=== PATIENT | female | born 1935 | race Caucasian/White ===

== ENCOUNTER 2016-09-20 13:35 | Day surgery (SDC) | payer MEDICARE ==
--- OUTSIDE RECORDS SUMMARY | 2016-09-20 13:41 | XMS REPORT | Continuity of Care Document ---
:1935 Author Organization [facility] ([facility]) Address [address] [place] [address] Phone [phone] Care Team Providers Name Role Phone Britany Ch Primary Care Provider [phone] Source Comments This disclosure is being made pursuant to the Care Everywhere program, applicable federal and state laws, and may not contain all informaitonavailable regarding this patient.[facility] ([facility]) Active Allergies and Adverse Reactions No Known Allergies Current Medications Prescription Sig. Disp. Refills Start Date End Date Status simvastatin 40 mg Take 40 mg by Active tablet mouth every evening. dorzolamide-timolol instill 1 Drop 10 mL 2 07/12/2014 Active 2-0.5 % ophthalmic onto both eyes 2 solution times daily. Indications: OCULAR HYPERTENSION atenolol 100 mg Take 100 mg by Active tablet mouth 2 times daily. docusate 100 mg Take 100 mg by Active capsule mouth daily as needed. furosemide 40 mg Take 40 mg by Active tablet mouth daily. minoxidil 2.5 mg Take 2.5 mg by Active tablet mouth 2 times daily. omeprazole 20 mg Take 20 mg by Active enteric coated mouth 2 times capsule daily. oxybutynin 5 mg Take 5 mg by mouth Active tablet 2 times daily. multivitamin with Take 1 Tab by Active minerals tablet mouth daily. vitamin A-vitamin Take 1 Tab by Active C-vitamin E w/ mouth daily. minerals (OCUVITE) tablet glucosamine-chondro Take 1 Tab by Active itin (OSTEO mouth daily. BI-FLEX) 250-200 mg per tablet HYDROcodone-acetami Take 1 tablet by Active nophen 10-325 mg mouth every 6 per tablet hours as needed. benazepril 40 mg Take 40 mg by Active tablet mouth daily. NEBIVOLOL HCL Active (BYSTOLIC PO) brimonidine 1 Drop every 8 Active (ALPHAGAN P) 0.1 % hours. ophthalmic solution VIT Active C/E/ZN/COPPR/LUTEIN /ZEAXAN (PRESERVISION AREDS 2 PO) multivitamin tablet Take 1 tablet by Active mouth daily. acetaminophen 325 Take 325 mg by 08/27/2016 Discontinued mg tablet mouth every 4 hours as needed for Pain. prednisoLONE instill 1 Drop 10 mL 1 07/26/2014 08/27/2016 Discontinued acetate 1 % onto the left eye ophthalmic 4 times daily. suspension Indications: SEVERE OCULAR INFLAMMATION aspirin 325 mg Take 325 mg by 08/27/2016 Discontinued tablet mouth daily. Active Problems Problem Noted Date Pseudophakia, both eyes 08/27/2016 Glaucoma 12/04/2014 Macular cyst, hole, or pseudohole of retina 07/25/2014 Postoperative eye state 07/25/2014 Chronic atrial fibrillation 07/25/2014 Essential hypertension, benign 07/25/2014 Bradycardia 07/25/2014 Most Recent Encounters Date Type Specialty Providers Description 08/27/2016 Office Visit Ophthalmology - Douglas Pinzon, Dx: Macular cyst , Specialty OD hole, or pseudohole of retina (Primary Dx) Social History Tobacco Use Types Packs/Day Years Used Date Never Smoker Smokeless Tobacco: Never Used Tobacco Cessation:Counseling Given: Yes Comments: Last Filed Vital Signs Vital Sign Reading Time Taken Blood Pressure 122/56 07/26/2014 4:00 AM LAMP REPLACER Pulse 50 07/26/2014 4:00 AM LAMP REPLACER Temperature 36.8 C (98.2 F) 07/26/2014 4:00 AM LAMP REPLACER Respiratory Rate 16 07/26/2014 4:00 AM LAMP REPLACER Height 1.651 m (5' 5") 07/25/2014 12:45 PM LAMP REPLACER Weight 57.607 kg (127 lb) 07/25/2014 12:45 PM LAMP REPLACER Body Mass Index 21.13 07/25/2014 12:45 PM LAMP REPLACER Oxygen Saturation 96% 07/26/2014 4:00 AM LAMP REPLACER Plan of Care Health Maintenance Due Date Last Done Comments Hepatitis B Vaccine (1 of 3 - Primary Series) 1935 Tdap Vaccine 1944 Lipid Disorder Screening 1951 Td Vaccine 1951 Colonoscopy 1983 Zoster Vaccine 1993 Osteoporosis Screening (DXA Bone Density) 1998 Pneumococcal Vaccine (1 of 2 - PCV13) 1998 Influenza Vaccine: Seasonal (#1) 02/02/2016 Results from Last 3 Months Not on file
--- OUTSIDE RECORDS SUMMARY | 2016-09-20 13:42 | XMS REPORT | Summary of Care ---
:1935 Author Organization [facility] Address [address] [place] [phone] Care Team Providers Name Role Phone Raghu Hernandes Primary Care Physician Encounter Date(s): 12/11/15 - 12/11/[address] [id number] Final: Essential (primary) hypertension Final: Other fatigue Final: Abnormal weight loss Discharge Disposition: Discharged to Home or Self Care Attending Physician: LÁZARO Hammond Admitting Physician: LÁZARO Hammond Vital Signs No data available for this section Problem List Condition Effective Dates Status Health Status Informant Acute gastritis(Confirmed) 09/10/09 Active Atrial fibrillation(Confirmed) 03/01/08 Active Carpal tunnel syndrome(Confirmed) 08/04/11 Active Congestive heart failure(Confirmed) 12/24/09 Active Hypertension(Confirmed) Active Hyperparathyroidism(Confirmed)1 09/1995 Active Osteoarthrosis(Confirmed) 03/01/08 Active Hypercholesterolemia(Confirmed) Active 1s/p resection Allergies, Adverse Reactions, Alerts Substance Reaction Severity Status aspirin Active Sular Edema Active warfarin GI bleeding Active Medications acetaminophen 325 mg oral tablet See Instructions, PRN for pain or fever, 1-2 tab(s) Oral q4-6hr as needed not to exceed 4000 mg/day, 0 Refill(s) Special Instructions: 1-2 tab(s) Oral q4-6hr as needed not to exceed 4000 mg/day Start Date: 11/08/13 Status: Orderedaspirin 325 mg oral tablet 1 tab(s), Oral, Daily, # 90 tab(s), 0 Refill(s), Start Date: 01/10/15 12:23:00 CDT, other reason (Rx) Start Date: 01/10/15 Status: Orderedaspirin 81 mg oral tablet 1 tab(s), Oral, Daily, # 90 tab(s), 0 Refill(s) Start Date: 11/08/13 Stop Date: 11/12/13 Status: Discontinuedatenolol 100 mg oral tablet 1 tab(s), Oral, BID, # 180 tab(s), 3 Refill(s), Pharmacy: [facility] [id number] Start Date: 03/01/14 Stop Date: 07/30/14 Status: Discontinuedatenolol 100 mg oral tablet 1 tab(s), Oral, BID, 0 Refill(s) Start Date: 11/08/13 Stop Date: 03/01/14 Status: Discontinuedatenolol 50 mg oral tablet 1 tab(s), Oral, BID, # 30 tab(s), 0 Refill(s), Start Date: 07/30/14 10:19:00 MEDIA PROFESSIONAL Start Date: 07/30/14 Stop Date: 07/30/14 Status: Discontinuedatenolol 50 mg oral tablet 1 tab(s), Oral, BID, # 60 tab(s), 5 Refill(s), Start Date: 11/08/14 14:05:55 CDT , Pharmacy: [facility] [id number] Start Date: 11/08/14 Stop Date: 01/10/15 Status: Completedatenolol 50 mg oral tablet 1 tab(s), Oral, BID, # 180 tab(s), 3 Refill(s), Start Date: 01/10/15 12:34:52 CDT, Pharmacy: [facility] [id number] Start Date: 01/10/15 Status: Orderedatenolol 50 mg oral tablet 1 tab(s), Oral, BID, # 60 tab(s), 5 Refill(s), Start Date: 07/30/14 12:33:00 MEDIA PROFESSIONAL , Pharmacy: [facility] [id number] Start Date: 07/30/14 Stop Date: 11/08/14 Status: Completedbenazepril 20 mg oral tablet 1 tab(s), Oral, Daily, # 90 tab(s), 3 Refill(s), Start Date: 01/10/15 12:36:00 CDT, Pharmacy: [facility] [id number] Start Date: 01/10/15 Status: Orderedbenazepril 40 mg oral tablet 1 tab(s), Oral, BID, 0 Refill(s) Start Date: 11/08/13 Stop Date: 01/10/15 Status: Discontinuedfurosemide 40 mg oral tablet 1.5 tab(s), Oral, Daily, # 45 tab(s), 0 Refill(s), Start Date: 01/17/15 14:42: 00 CDT, other reason (Rx) Start Date: 01/17/15 Stop Date: 02/17/15 Status: Discontinuedfurosemide 40 mg oral tablet 1 tab(s), Oral, Daily, # 90 tab(s), 3 Refill(s), Start Date: 02/17/15 14:04:02 CDT, Pharmacy: [facility] [id number] Start Date: 02/17/15 Stop Date: 03/12/15 Status: Discontinuedfurosemide 40 mg oral tablet 1 tab(s), Oral, Daily, PRN edema, # 30 tab(s), 0 Refill(s), Start Date: 14:11:00 CDT, other reason (Rx) Start Date: 03/12/15 Stop Date: 12/11/15 Status: Discontinuedfurosemide 40 mg oral tablet 1 tab(s), Oral, Daily, # 90 tab(s), 3 Refill(s), Start Date: 03/01/14 17:01:00 CDT, Pharmacy: [facility] [id number] Start Date: 03/01/14 Stop Date: 11/29/14 Status: Completedfurosemide 40 mg oral tablet 1 tab(s), Oral, Daily, # 90 tab(s), 0 Refill(s), Start Date: 11/29/14 18:03:47 CDT, Pharmacy: [facility] [id number] Start Date: 11/29/14 Stop Date: 01/10/15 Status: Discontinuedfurosemide 40 mg oral tablet 1 tab(s), Oral, Daily, # 90 tab(s), 0 Refill(s) Start Date: 11/08/13 Stop Date: 03/01/14 Status: DiscontinuedhydrALAZINE 25 mg oral tablet 2 tab(s), Oral, TID, 0 Refill(s) Start Date: 11/08/13 Stop Date: 11/12/13 Status: DiscontinuedHYDROcodone-acetaminophen 10 mg-325 mg oral tablet See Instructions, PRN for pain, 1 tab every 4-6 hours as needed not to exceed 4000 mg acetaminophen per day, # 60 tab(s), 0 Refill(s), Start Date: 04/01/14 12 :49:00 CDT Special Instructions: 1 tab every 4-6 hours as needed not to exceed 4000 mg acetaminophen per day Start Date: 04/01/14 Stop Date: 12/26/14 Status: CompletedHYDROcodone-acetaminophen 10 mg-325 mg oral tablet See Instructions, PRN for pain, 1 tab every 4-6 hours as needed not to exceed 4000 mg acetaminophen per day, # 60 tab(s), 0 Refill(s), Start Date: 12/26/14 15 :42:12 CDT Special Instructions: 1 tab every 4-6 hours as needed not to exceed 4000 mg acetaminophen per day Start Date: 12/26/14 Stop Date: 12/11/15 Status: DiscontinuedHYDROcodone-acetaminophen 10 mg-325 mg oral tablet See Instructions, PRN for pain, 1 tab every 4-6 hours as needed not to exceed 4000 mg acetaminophen per day, # 90 tab(s), 0 Refill(s), Start Date: 12/11/15 11 :37:46 CDT Special Instructions: 1 tab every 4-6 hours as needed not to exceed 4000 mg acetaminophen per day Start Date: 12/11/15 Status: OrderedHYDROcodone-acetaminophen 10 mg-325 mg oral tablet See Instructions, PRN for pain, 1 tab every 4-6 hours as needed not to exceed 4000 mg acetaminophen per day, 0 Refill(s) Special Instructions: 1 tab every 4-6 hours as needed not to exceed 4000 mg acetaminophen per day Start Date: 11/08/13 Stop Date: 04/01/14 Status: Discontinuedminoxidil 2.5 mg oral tablet 1 tab(s), Oral, TID, # 270 tab(s), 3 Refill(s), Pharmacy: [facility] [id number] Start Date: 03/21/14 Stop Date: 04/11/14 Status: Completedminoxidil 2.5 mg oral tablet 1 tab(s), Oral, BID, # 60 tab(s), 11 Refill(s), Pharmacy: [facility] [id number] Start Date: 11/23/13 Stop Date: 03/01/14 Status: Discontinuedminoxidil 2.5 mg oral tablet 1 tab(s), Oral, TID, # 270 tab(s), 3 Refill(s), Start Date: 04/11/14 14:16:25 CDT, Pharmacy: [facility] [id number] Start Date: 04/11/14 Stop Date: 01/10/15 Status: Completedminoxidil 2.5 mg oral tablet 1 tab(s), Oral, TID, # 270 tab(s), 11 Refill(s), Pharmacy: [facility] [id number] Start Date: 03/01/14 Stop Date: 03/21/14 Status: Completedminoxidil 2.5 mg oral tablet 1 tab(s), Oral, TID, # 270 tab(s), 3 Refill(s), Start Date: 01/10/15 12:35:21 CDT, Pharmacy: [facility] [id number] Start Date: 01/10/15 Status: OrderedMyrbetriq 25 mg oral tablet, extended release 1 tab(s), Oral, Daily, # 30 tab(s), 11 Refill(s), Start Date: 01/17/15 14:41:00 CDT, Pharmacy: [facility] [id number] Start Date: 01/17/15 Stop Date: 03/12/15 Status: Discontinuedomeprazole 20 mg oral delayed release capsule 1 cap(s), Oral, BID, before a meal, # 60 cap(s), 2 Refill(s), Start Date: 14:15:00 MEDIA PROFESSIONAL, Pharmacy: [facility] [id number] Special Instructions: before a meal Start Date: 05/09/14 Stop Date: 06/10/14 Status: Completedomeprazole 20 mg oral delayed release capsule 1 cap(s), Oral, BID, before a meal, # 180 cap(s), 2 Refill(s), Start Date: 09/02 16:49:06 MEDIA PROFESSIONAL, Pharmacy: [facility] [id number] Special Instructions: before a meal Start Date: 09/02/14 Stop Date: 01/10/15 Status: Completedomeprazole 20 mg oral delayed release capsule 1 cap(s), Oral, BID, before a meal, # 180 cap(s), 3 Refill(s), Start Date: 01/10 12:35:03 CDT, Pharmacy: [facility] [id number] Special Instructions: before a meal Start Date: 01/10/15 Stop Date: 12/11/15 Status: Discontinuedomeprazole 20 mg oral delayed release capsule 1 cap(s), Oral, BID, before a meal, 0 Refill(s) Special Instructions: before a meal Start Date: 11/08/13 Stop Date: 05/09/14 Status: Discontinuedomeprazole 20 mg oral delayed release capsule 1 cap(s), Oral, BID, before a meal, # 180 cap(s), 3 Refill(s), Start Date: 06/10 14:08:00 MEDIA PROFESSIONAL, Pharmacy: [facility] [id number] Special Instructions: before a meal Start Date: 06/10/14 Stop Date: 09/02/14 Status: Completedoxybutynin 5 mg oral tablet 1 tab(s), Oral, BID, # 60 tab(s), 11 Refill(s), Pharmacy: [facility] [id number] Start Date: 02/08/14 Stop Date: 01/10/15 Status: Discontinuedpantoprazole 40 mg oral delayed release tablet 1 tab(s), Oral, Daily, # 90 tab(s), 3 Refill(s), Start Date: 12/11/15 21:22:00 CDT, Pharmacy: [facility] [id number] Start Date: 12/11/15 Status: Orderedpotassium chloride 20 mEq oral tablet, extended release 1 tab(s), Oral, Daily, # 90 tab(s), 3 Refill(s), Start Date: 02/17/15 14:08:00 CDT, Pharmacy: [facility] [id number] Start Date: 02/17/15 Stop Date: 03/12/15 Status: Discontinuedpotassium chloride 20 mEq oral tablet, extended release 1 tab(s), Oral, Daily, take with furosemide, # 30 tab(s), 0 Refill(s), Start Date: 03/12/15 14:11:00 CDT, other reason (Rx) Special Instructions: take with furosemide Start Date: 03/12/15 Stop Date: 12/11/15 Status: Discontinuedsimvastatin 40 mg oral tablet 1 tab(s), Oral, HS, # 90 tab(s), 3 Refill(s), Start Date: 04/11/14 14:16:44 CDT , Pharmacy: [facility] [id number] Start Date: 04/11/14 Stop Date: 01/10/15 Status: Completedsimvastatin 40 mg oral tablet 1 tab(s), Oral, HS, # 30 tab(s), 6 Refill(s), Pharmacy: [facility] [id number] Start Date: 03/13/14 Stop Date: 04/11/14 Status: Completedsimvastatin 40 mg oral tablet 1 tab(s), Oral, HS, # 90 tab(s), 3 Refill(s), Start Date: 01/10/15 12:35:13 CDT , Pharmacy: [facility] [id number] Start Date: 01/10/15 Status: Orderedsimvastatin 40 mg oral tablet 1 tab(s), Oral, HS, # 90 tab(s), 0 Refill(s) Start Date: 11/08/13 Stop Date: 03/13/14 Status: Discontinued Results Patient Viewable Results Most recent to oldest [Reference Range]: 1 WBC [4.8-10.8 thou/mm3] 4.9 thou/mm3 (12/11/15 12:08 PM) RBC [4.20-5.40 Mil/mm3] 4.16 Mil/mm3 *LOW* (12/11/15 12:08 PM) Hgb [12.0-16.0 g/dL] 11.8 g/dL *LOW* (12/11/15 12:08 PM) Hct [37.0-47.0 %] 37.0 % (12/11/15 12:08 PM) MCV [80.0-94.0 fL] 88.9 fL (12/11/15 12:08 PM) MCH [25.0-38.0 pg/cell] 28.4 pg/cell (12/11/15 12:08 PM) MCHC [31.0-37.0 g/dL] 31.9 g/dL (12/11/15 12:08 PM) RDW [1.0-48.0 fL] 46.9 fL (12/11/15:08 PM) Platelet [130-400 thou/mm3] 208 thou/mm3 (12/11/15:08 PM) Neutrophils % Auto [50.0-75.0 %] 68.5 % (12/11/1508 PM) Immature Granulocyte Auto [0.1-2.0 %] 0.4 % (12/11/15:08 PM) Lymphocytes % Auto [15.0-41.0 %] 18.1 % (12/11/15:08 PM) Monocytes % Auto [2.0-10.0 %] 10.6 % *HI* (12/11/1508 PM) Eosinophils % Auto [0.0-6.0 %] 2.0 % (12/11/15:08 PM) Basophil % Auto [0.0-1.0 %] 0.4 % (12/11/15:08 PM) Neutrophils Absolute [1.5-5.9 thou/mm3] 3.4 thou/mm3 (12/11/15:08 PM) Immature Gran Absolute [0.01-0.03 thou/mm3] 0.02 thou/mm3 (12/11/15:08 PM) Lymphocytes Absolute [1.5-4.0 thou/mm3] 0.9 thou/mm3 *LOW* (12/11/15 PM) Monocytes Absolute [0.0-0.9 thou/mm3] 0.5 thou/mm3 (12/11/15:08 PM) Eosinophil Absolute [0.0-0.7 thou/mm3] 0.1 thou/mm3 (12/11/15:08 PM) Basophil Absolute [0.0-0.2 thou/mm3] 0.0 thou/mm3 (12/11/15:08 PM) Sodium Lvl [135-144 mEq/L] 143 mEq/L (12/11/15:08 PM) Potassium Lvl [3.3-4.8 mEq/L] 3.8 mEq/L (12/11/15 12:08 PM) Chloride Lvl [98-107 mEq/L] 106 mEq/L (12/11/15 12:08 PM) Bicarbonate Lvl [22-30 mmol/L] 29 mmol/L (12/11/15:08 PM) Anion Gap [10.0-20.0] 11.8 (12/11/15 12:08 PM) Glucose Lvl [70-108 mg/dL] 87 mg/dL (12/11/15:08 PM) BUN [7-21 mg/dL] 23 mg/dL *HI* (12/11/15:08 PM) Creatinine Lvl [0.50-1.20 mg/dL] 0.53 mg/dL (12/11/15:08 PM) BUN/Creat Ratio 43.4 *NA* (12/11/15:08 PM) eGFR AA [>=60] >60 (12/11/15:08 PM) eGFR JAYLYN [>=60] >60 (12/11/15:08 PM) Calcium Lvl [8.6-10.2 mg/dL] 8.7 mg/dL (12/11/15 12:08 PM) Total Protein [6.4-8.3 g/dL] 6.5 g/dL (12/11/15:08 PM) Albumin Lvl [3.5-5.2 g/dL] 3.9 g/dL (12/11/15 12:08 PM) Globulin 2.6 *NA* (12/11/15:08 PM) A/G Ratio [0.9-1.8] 1.5 (12/11/15:08 PM) Bilirubin Total [0.1-1.0 mg/dL] 0.7 mg/dL (12/11/15 12:08 PM) Alkaline Phosphatase [39-129 unit/L] 90 unit/L (12/11/15:08 PM) AST [0-39 unit/L] 20 unit/L (12/11/15 12:08 PM) ALT [0-40 unit/L] 11 unit/L (12/11/15 12:08 PM) Free T3 [2.3-4.2 pg/mL] 2.8 pg/mL (12/11/15 12:08 PM) Free T4 [0.89-1.76 ng/dL] 1.02 ng/dL (12/11/15 12:08 PM) TSH [0.50-3.00 mIU/L] 1.11 mIU/L (12/11/15 12:08 PM) Estimated Creatinine Clearance 69.43 mL/min (12/11/15 5:13 PM) Immunizations Vaccine Date Refusal Reason influenza virus vaccine, inactivated 04/28/15 influenza virus vaccine, inactivated 04/01/14 influenza virus vaccine, inactivated 03/29/13 pneumococcal 13-valent conjugate vaccine 06/12/15 pneumococcal 23-polyvalent vaccine 04/12/99 Procedures Procedure Date Related Diagnosis Body Site Tubal ligation 1982 Social History No data available for this section Assessment and Plan No data available for this section
--- OUTSIDE RECORDS SUMMARY | 2016-09-20 13:43 | XMS REPORT | Summary of Care ---
:1935 Author Organization [facility] Address [address] [place] [id number] Care Team Providers Name Role Phone Raghu Hernandes Primary Care Physician Encounter Date(s): 12/11/15 - 12/11/[address] [id number] Discharge Diagnosis: Congestive heart failure Discharge Diagnosis: Localized, primary osteoarthritis Discharge Diagnosis: Knee joint pain Discharge Diagnosis: Essential hypertension Discharge Diagnosis: Paroxysmal atrial fibrillation Discharge Diagnosis: Unintentional weight loss Discharge Diagnosis: Fatigue Discharge Disposition: 01 Discharged to Home or Self Care Attending Physician: LÁZARO Hammond Referring Physician: LÁZARO Hammond Vital Signs Most recent to oldest [Reference Range]: 1 Peripheral Pulse Rate [60-100 bpm] 60 bpm (12/11/15 11:13 AM) SpO2 97 % (12/11/15 11:13 AM) Blood Pressure [90-130/60-90 mmHg] 152/60mmHg *HI* (12/11/15 11:13 AM) Mean Arterial Pressure, Cuff 91 mmHg (12/11/15 11:13 AM) Most recent to oldest [Reference Range]: 1 Height/Length Measured 161.5 cm (12/11/15 11:13 AM) Weight Dosing 53.90 kg1 (12/11/15 11:18 AM) Weight Measured 53.9 kg (12/11/15 11:13 AM) BSA Measured 1.56 m2 (12/11/15 11:13 AM) Body Mass Index Measured 20.67 kg/m2 (12/11/15 11:13 AM) 1Result Comment: This result was because the dosing weight was either not entered or it is>30 days old. 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 Start Date: 07/30/14 Stop Date: 07/30/14 Status: Discontinuedatenolol 50 mg oral tablet 1 tab(s), Oral, BID, # 60 tab(s), 5 Refill(s), Start Date: 11/08/14 14:05:55 CDT , [place] [facility] [place] [id number] [place] Date: 11/08/14 Stop Date: 01/10/15 Status: Completedatenolol 50 mg oral tablet 1 tab(s), Oral, BID, # 180 tab(s), 3 Refill(s), Start Date: 01/10/15 12:34:52 CDT, [place] [facility] [place] [id number] Start Date: 01/10/15 Status: Orderedatenolol 50 mg oral tablet 1 tab(s), Oral, BID, # 60 tab(s), 5 Refill(s), Start Date: 07/30/14 12:33:00 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 , [place] [facility] [place] [id number] Start Date: 07/30/14 Stop Date: 11/08/14 Status: Completedbenazepril 20 mg oral tablet 1 tab(s), Oral, Daily, # 90 tab(s), 3 Refill(s), Start Date: 01/10/15 12:36:00 CDT, [place] [facility] [place] [id number] Start Date: 01/10/15 Status: Orderedbenazepril 40 mg [...] Refill(s), Start Date: 02/17/15 14:04:02 CDT, [place] [facility] [place] [id number] Start Date: 02/17/15 Stop Date: 03/12/15 Status: Discontinuedfurosemide 40 mg oral tablet 1 tab(s), Oral, Daily, PRN edema, # 30 tab(s), 0 Refill(s), Start Date: 14:11:00 CDT, other reason (Rx) Start Date: 03/12/15 Stop Date: 12/11/15 Status: Discontinuedfurosemide 40 mg oral tablet 1 tab(s), Oral, Daily, # 90 tab(s), 3 Refill(s), Start Date: 03/01/14 17:01:00 CDT, Pharmacy: [facility] [id number] Start Date: 03/01/14 Stop Date: 11/29/14 Status: Completedfurosemide 40 mg oral tablet 1 tab(s), Oral, Daily, # 90 tab(s), 0 Refill(s), Start Date: 11/29/14 18:03:47 CDT, Pharmacy: [facility] [id number] Start Date: 11/29/14 Stop Date: 01/10/15 Status: [...] Start Date: 11/08/13 Stop Date: 04/01/14 Status: DiscontinuedKenalog (office) 40 mg, Intra-articular, ONETIME, First Dose: 12/11/15 13:00:00 CDT, Stop Date: 12/11/15 13:00:00 CDT Start Date: 12/11/15 Stop Date: 12/11/15 Status: Completedminoxidil 2.5 mg oral tablet 1 tab(s), Oral, TID, # 270 tab(s), 3 Refill(s), Pharmacy: [facility] [id number] Start Date: 03/21/14 Stop Date: 04/11/14 Status: Completedminoxidil 2.5 mg oral tablet 1 tab(s), Oral, BID, # 60 tab(s), 11 Refill(s), Pharmacy: [facility] [id number] Start Date: 11/23/13 Stop Date: 03/01/14 Status: Discontinuedminoxidil 2.5 mg oral tablet 1 tab(s), Oral, TID, # 270 tab(s), 3 Refill(s), Start Date: 04/11/14 14:16:25 CDT, Pharmacy: [facility] [id number] Start Date: 04/11/14 Stop Date: 01/10/15 Status: Completedminoxidil 2.5 mg oral tablet 1 tab(s), Oral, TID, # 270 tab(s), 11 Refill(s), Pharmacy: [facility] [id number] Start Date: 03/01/14 Stop Date: 03/21/14 Status: Completedminoxidil 2.5 mg oral tablet 1 tab(s), Oral, TID, # 270 tab(s), 3 Refill(s), Start Date: 01/10/15 12:35:21 CDT, Pharmacy: [facility] [id number] Start Date: 01/10/15 Status: OrderedMyrbetriq 25 mg oral tablet, extended release 1 tab(s), Oral, Daily, # 30 tab(s), 11 Refill(s), Start Date: 01/17/15 14:41:00 CDT, Pharmacy: [facility] [id number] Start Date: 01/17/15 Stop Date: 03/12/15 Status: Discontinuedomeprazole 20 mg oral delayed release capsule 1 cap(s), Oral, BID, before a meal, # 60 cap(s), 2 Refill(s), Start Date: 14:15:00 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, Pharmacy: [facility] [id number] Special Instructions: before a meal Start Date: 05/09/14 Stop Date: 06/10/14 Status: Completedomeprazole 20 mg oral delayed release capsule 1 cap(s), Oral, BID, before a meal, # 180 cap(s), 2 Refill(s), Start Date: 09/02 16:49:06 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, Pharmacy: [facility] [id number] Special Instructions: before a meal Start Date: 09/02/14 Stop Date: 01/10/15 Status: Completedomeprazole 20 mg oral delayed release capsule 1 cap(s), Oral, BID, before a meal, # 180 cap(s), 3 Refill(s), Start Date: 01/10 12:35:03 CDT, Pharmacy: [facility] [id number] Special Instructions: before a meal Start Date: 01/10/15 Stop Date: 12/11/15 Status: Discontinuedomeprazole 20 mg oral delayed release capsule 1 cap(s), Oral, BID, before a meal, 0 Refill(s) Special Instructions: before a meal Start Date: 11/08/13 Stop Date: 05/09/14 Status: Discontinuedomeprazole 20 mg oral delayed release capsule 1 cap(s), Oral, BID, before a meal, # 180 cap(s), 3 Refill(s), Start Date: 06/10 14:08:00 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, Pharmacy: [facility] [id number] Special Instructions: before a meal Start Date: 06/10/14 Stop Date: 09/02/14 Status: Completedoxybutynin 5 mg oral tablet 1 tab(s), Oral, BID, # 60 tab(s), 11 Refill(s), Pharmacy: [facility] [id number] Start Date: 02/08/14 Stop Date: 01/10/15 Status: Discontinuedpantoprazole 40 mg oral delayed release tablet 1 tab(s), Oral, Daily, # 90 tab(s), 3 Refill(s), Start Date: 12/11/15 21:22:00 CDT, Pharmacy: [facility] [id number] Start Date: 12/11/15 Status: Orderedpotassium chloride 20 mEq oral tablet, extended release 1 tab(s), Oral, Daily, # 90 tab(s), 3 Refill(s), Start Date: 02/17/15 14:08:00 CDT, Pharmacy: [facility] [id number] Start Date: 02/17/15 Stop Date: 03/12/15 Status: [...] Start Date: 04/11/14 14:16:44 CDT , Pharmacy: [facility] [id number] Start Date: 04/11/14 Stop Date: 01/10/15 Status: Completedsimvastatin 40 mg oral tablet 1 tab(s), Oral, HS, # 30 tab(s), 6 Refill(s), Pharmacy: [facility] [id number] Start Date: 03/13/14 Stop Date: 04/11/14 Status: Completedsimvastatin 40 mg oral tablet 1 tab(s), Oral, HS, # 90 tab(s), 3 Refill(s), Start Date: 01/10/15 12:35:13 CDT , Pharmacy: [facility] [id number] Start Date: 01/10/15 Status: Orderedsimvastatin 40 mg oral tablet 1 tab(s), Oral, HS, # 90 tab(s), 0 Refill(s) Start Date: 11/08/13 Stop Date: 03/13/14 Status: Discontinued Results No data available for this section Immunizations Vaccine Date Refusal Reason influenza virus vaccine, inactivated 04/28/15 influenza virus vaccine, inactivated 04/01/14 influenza virus vaccine, inactivated 03/29/13 pneumococcal 13-valent conjugate vaccine 06/12/15 pneumococcal 23-polyvalent vaccine 04/12/99 Procedures Procedure Date Related Diagnosis Body Site Tubal ligation 1982 Social History No data available for this section Assessment and Plan No data available for this section
[2016-09-20] MEDS ORDERED: TETRACAINE HCL 150 DROP BTL RIGHTEYE ONE (14:14)
[2016-09-20 14:30] VITALS: BP 146/65
== END 2016-09-20 13:36 | disposition home or self-care (01) ==
LOC: AMB 13:35
PROVIDERS: ATTEND Ophthalmology
PROC: 08923ZZ Drainage of Right Anterior Chamber, Percutaneous Approach (ICD-10-PCS; principal; 2016-09-20 13:25)
DX: H40.1110 Primary open-angle glaucoma, right eye, stage unspecified (principal); Z68.22 Body mass index [BMI] 22.0-22.9, adult

== ENCOUNTER 2016-11-15 13:19 | Day surgery (SDC) | payer MEDICARE ==
--- OUTSIDE RECORDS SUMMARY | 2016-11-15 13:23 | XMS REPORT | Continuity of Care Document ---
:1935 Author Organization [facility] ([facility]) Address [address] [place] [address] Phone [phone] Care Team Providers Name Role Phone Britany Ch Primary Care Provider [phone] Source Comments This disclosure is being made pursuant to the Care Everywhere program, applicable federal and state laws, and may not contain all informaitonavailable regarding this patient.[facility] ([facility]) Active Allergies and Adverse Reactions No Known Allergies Current Medications Prescription Sig. Disp. Refills Start Date End Date Status simvastatin 40 mg Take 40 mg by mouth Active tablet every evening. dorzolamide-timolol instill 1 Drop onto 10 mL 2 07/12/2014 Active 2-0.5 % ophthalmic both eyes 2 times solution daily. Indications: OCULAR HYPERTENSION atenolol 100 mg tablet Take 100 mg by mouth 2 Active times daily. docusate 100 mg Take 100 mg by mouth Active capsule daily as needed. furosemide 40 mg Take 40 mg by mouth Active tablet daily. minoxidil 2.5 mg Take 2.5 mg by mouth 2 Active tablet times daily. omeprazole 20 mg Take 20 mg by mouth 2 Active enteric coated capsule times daily. oxybutynin 5 mg tablet Take 5 mg by mouth 2 Active times daily. multivitamin with Take 1 Tab by mouth Active minerals tablet daily. vitamin A-vitamin Take 1 Tab by mouth Active C-vitamin E w/ daily. minerals (OCUVITE) tablet glucosamine-chondroiti Take 1 Tab by mouth Active n (OSTEO BI-FLEX) daily. 250-200 mg per tablet HYDROcodone-acetaminop Take 1 tablet by mouth Active hen 10-325 mg per every 6 hours as tablet needed. benazepril 40 mg Take 40 mg by mouth Active tablet daily. NEBIVOLOL HCL Active (BYSTOLIC PO) brimonidine (ALPHAGAN 1 Drop every 8 hours. Active P) 0.1 % ophthalmic solution VIT Active C/E/ZN/COPPR/LUTEIN/ZE AXAN (PRESERVISION AREDS 2 PO) multivitamin tablet Take 1 tablet by mouth Active daily. 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
[2016-11-15 13:34] VITALS: BP 144/56
[2016-11-15] MEDS ORDERED: HYPROMELLOSE 150 DROP BTL OP ONE (14:03)
[2016-11-15] MEDS ORDERED: TETRACAINE HCL 150 DROP BTL OP ONE (14:03)
== END 2016-11-15 13:20 | disposition home or self-care (01) ==
LOC: SUR 13:19
PROVIDERS: ATTEND Ophthalmology
PROC: 08933ZZ Drainage of Left Anterior Chamber, Percutaneous Approach (ICD-10-PCS; principal; 2016-11-15 14:30)
DX: H40.1124 Primary open-angle glaucoma, left eye, indeterminate stage (principal); I10 Essential (primary) hypertension; E78.00 Pure hypercholesterolemia, unspecified; K21.9 Gastro-esophageal reflux disease without esophagitis; Z68.22 Body mass index [BMI] 22.0-22.9, adult